=== PATIENT | female | born 1995 | race Caucasian/White ===

== ENCOUNTER → 2019-05-29 16:56 | Outpatient (CLI) | payer MEDICAID, SELFPAY ==
--- NOTE | 2019-05-29 17:01 | US_ITS ---
STUDY: THYROID ULTRASOUND REASON FOR EXAM: Female, 24 years old. Palpable nodule TECHNIQUE: Ultrasound evaluation of the thyroid was performed with real-time and static perez-scale imaging. COMPARISON: None. FINDINGS: RIGHT LOBE: The right lobe of the thyroid gland measures 5.0 x 1.4 x 0.8 cm. There is a homogeneous echotexture. There are no demonstrated solid, cystic or complex lesions. LEFT LOBE: The left lobe of the thyroid gland measures 5.1 x 1.6 x 0.9 cm. There is a homogeneous echotexture. There is a mid thyroid hypoechoic nodule measuring 4 x 3 x 2 mm. ISTHMUS: The isthmus measures 2 mm . Up to 1.1 cm right cervical nodes are noted. Up to 2.9 cm left cervical nodes are noted. US/Thyroid IMPRESSION: Hypoechoic left thyroid subcentimeter nodule. Bilateral slightly prominent nodes, left more than right. They may be reactive with no pathologic appearance. Electronically Signed: Zach Murrell DO at 0:00 EST Tel [phone], Service support ,
== END ==
DX: E04.9 Nontoxic goiter, unspecified (principal)
CPT/HCPCS: 76536